=== PATIENT | female | born 1990 | race Caucasian/White ===

== ENCOUNTER 2018-09-13 20:09 | Emergency (ER) | payer OTHER ==
[2018-09-13 20:18] VITALS: BMI 27.3
--- NOTE | 2018-09-13 20:18 | PDOC ---
Rapid Medical Evaluation Chief Complaint: Vaginal Bleeding Medical Evaluation: Allergies Allergy/AdvReac Type Severity Reaction Status Date / Time No Known Allergies Allergy Verified 07/28/16 07:36 09/13/18 20:16 I performed a brief in person evaluation. CC: Vaginal bleeding HPI: Pt is a 28 YO female who is who is approx 9 weeks and is vaginal bleeding x 3 days. Soaking 2 pads/day. PE: Skin: Clear Lungs: Clear Heart: RRR MS: Moves all extremities without difficulty Neuro: Alert Psych: Appropriate affect Labs drawn. Pt will go to main ED for further evaluation. Discharge Disposition - Diagnosis Vaginal bleeding - Referrals - Patient Instructions - Post Discharge Activity
[2018-09-13 20:37] LABS: BASO % 0.4 % (0-2.0); EOS % 1.6 % (0-4.5); HEMATOCRIT 30.5 % (32.4-45.2); HEMOGLOBIN 10.5 GM/dL (10.7-15.3); LYMPH % 23.2 % (8-40); MCH 24.8 pg (25.7-33.7); MCHC 34.4 g/dl (32.0-36.0); MEAN CELL VOLUME 72.3 fl (80-96); MEAN PLT VOLUME 6.9 fl (7.5-11.1); MONO % 7.3 % (3.8-10.2); NEUT % 67.5 % (42.8-82.8); PLATELET COUNT 493 K/MM3 (134-434); RBC 4.22 M/mm3 (3.60-5.2); RDW 16.3 % (11.6-15.6); WHITE BLOOD COUNT 15.4 K/mm3 (4.0-10.0)
--- NOTE | 2018-09-13 20:38 | PDOC ---
History of Present Illness - General Chief Complaint: Vaginal Bleeding Stated Complaint: 9 WEEKS BLEEDING Time Seen by Provider: 09/13/18 20:38 History Source: Patient Exam Limitations: No Limitations - History of Present Illness Initial Comments: Pt is a 28 yo F, G1PO, with no significant PMH, who is presenting with complaints of vaginal spotting x5 days and diffuse, lower crampy abdominal pain since this AM. Pt states LMP was 11/6 (~9 weeks), and was normal in duration and amount of bleeding. Pt states she had Pap smear and STI testing just done in June 2018, and all tests were negative. Pt denies any fevers/chills, headache, vision changes, syncope, chest pain, palpitations, SOB, nausea/ vomiting, urinary symptoms (dysuria, hematuria, urgency), vaginal discharge that is unusual and foul-smelling, flank pain, diarrhea/constipation, or leg swelling. Social: Pt denies any cigarette, alcohol, or drug use. Pt denies any recent travel or sick contacts. Surgical: no relevant history. Family: no relevant history. 09/13/18 21:59 Past History - Travel Traveled outside of the country in the last 30 days: No Close contact w/someone who was outside of country & ill: No - Past Medical History Allergies/Adverse Reactions: Allergies Allergy/AdvReac Type Severity Reaction Status Date / Time No Known Allergies Allergy Verified 09/13/18 20:18 Home Medications: Ambulatory Orders No Home Medications 0 dose .ROUTE UTDICT 04/08/13 Anemia: No Asthma: No Cancer: No Cardiac Disorders: No CVA: No COPD: No CHF: No Dementia: No Diabetes: No GI Disorders: No Disorders: No HTN: No Hypercholesterolemia: No Liver Disease: No Seizures: No Thyroid Disease: No - Surgical History Abdominal Surgery: No GI Surgery: No - Immunization History Immunization Up to Date: No - Suicide/Smoking/Psychosocial Hx Smoking Status: No Smoking History: Never smoked Have you smoked in the past 12 months: No Number of Cigarettes Smoked Daily: 0 Information on smoking cessation initiated: No Hx Alcohol Use: No Drug/Substance Use Hx: No Substance Use Type: None Review of Systems - Review of Systems Able to Perform ROS?: Yes Is the patient limited Italian proficient: No Constitutional: Yes: Weight Stable. No: Chills, Diaphoresis, Fever, Loss of Appetite HEENTM: No: Recent change in vision, Nose Congestion, Throat Pain Respiratory: No: Cough, Shortness of Breath Cardiac (ROS): No: Chest Pain, Edema, Lightheadedness, Palpitations, Chest Tightness ABD/GI: Yes: See HPI, Abdominal cramping. No: Constipated, Diarrhea, Nausea, Poor Appetite, Poor Fluid Intake, Vomiting : Yes: See HPI, Other (vaginal bleeding, see HPI). No: Burning, Dysuria, Discharge, Frequency, Flank Pain, Hematuria, Incontinence, Pain, Urgency Musculoskeletal: No: Back Pain, Joint Pain Integumentary: No: Rash Neurological: No: Headache, Seizure, Weakness, Unsteady Gait, Dizziness Psychiatric: No: Sleep Pattern Change, Change in Appetite Endocrine: No: Increased Urine, Change in Weight Hematologic/Lymphatic: No: Anemia, Blood Clots, Easy Bleeding, Easy Bruising All Other Systems: Reviewed and Negative *Physical Exam - Vital Signs Last Vital Signs Temp Pulse Resp BP Pulse Ox 98.6 F 94 H 18 148/77 98 09/13/18 20:15 09/13/18 20:15 09/13/18 20:15 09/13/18 20:15 09/13/18 20:15 - Physical Exam General Appearance: Yes: Nourished, Appropriately Dressed. No: Apparent Distress HEENT: positive: EOMI, JEANINE, Normal ENT Inspection, Normal Voice, Symmetrical, Pharynx Normal, Hearing Grossly Normal. negative: Scleral Icterus (R), Scleral Icterus (L), Pharyngeal Erythema, Tonsillar Exudate, Tonsillar Erythema, Rhinorrhea Neck: positive: Trachea midline, Normal Thyroid, Supple. negative: Tender, Rigid, Lymphadenopathy (R), Lymphadenopathy (L) Respiratory/Chest: positive: Lungs Clear, Normal Breath Sounds. negative: Chest Tender, Respiratory Distress, Accessory Muscle Use, Crackles, Wheezing Cardiovascular: positive: Regular Rhythm, Regular Rate, S1, S2. negative: Edema , JVD, Murmur Vascular Pulses: Carotid (R): 4+, Carotid (L): 4+ Female Pelvic Exam: positive: normal external exam, cervical os closed, normal adnexa, normal size ovaries, vaginal bleeding (mild, no pooling). negative: CMT , discharge, lesions, adnexal tenderness Gastrointestinal/Abdominal: positive: Normal Bowel Sounds, Tender (mild RLQ abdominal tenderness, no rebound, no guarding), Flat, Soft. negative: Organomegaly, Pulsatile Mass, Distended, Guarding, Rebound Rectal Exam: positive: deferred Lymphatic: negative: Adenopathy, Tenderness Musculoskeletal: positive: Normal Inspection. negative: CVA Tenderness Extremity: positive: Normal Capillary Refill, Normal Inspection, Normal Range of Motion, Pelvis Stable. negative: Tender, Pedal Edema Integumentary: positive: Normal Color, Dry, Warm. negative: Jaundice, Clammy, Diaphoresis, Rash Neurologic: positive: gold leaf roller II-XII NML intact, Fully Oriented, Alert, Normal Mood/ Affect, Normal Response, Motor Strength 5/5 Moderate Sedation - Procedure Monitoring Vital Signs: Procedure Monitoring Vital Signs Temperature 98.6 F 09/13/18 20:15 Pulse Rate 94 H 09/13/18 20:15 Respiratory Rate 18 09/13/18 20:15 Blood Pressure 148/77 09/13/18 20:15 O2 Sat by Pulse Oximetry (%) 98 09/13/18 20:15 ED Treatment Course - LABORATORY CBC & Chemistry Diagram: 09/13/18 20:18 Medical Decision Making - Medical Decision Making Pt was seen at bedside, also will be seen by attending Dr. Boudreaux. Pt presenting with complaints of vaginal spotting x5 days and diffuse, lower crampy abdominal pain since this AM. Pt states LMP was 11/6 (~9 weeks), and was normal in duration and amount of bleeding. Pt states she had Pap smear and STI testing just done in June 2018, and all tests were negative. Pt denies any fevers/ chills, headache, vision changes, syncope, chest pain, palpitations, SOB, nausea /vomiting, urinary symptoms (dysuria, hematuria, urgency), vaginal discharge that is unusual and foul-smelling, flank pain, diarrhea/constipation, or leg swelling. Pt afebrile, pt mildly HTN at 148/77, likely anxiety given pt presentation -- will recheck. PE showed clear heart and lung sounds, no b/l pedal edema. Mild RLQ abdominal tenderness to palpation. No CVA tenderness. Vaginal exam showed mild bleeding in the vaginal canal, no clots or pooling. No foul smelling or unusual vaginal discharge. Considering normal bleeding of vs threatened vs inevitable miscarriage vs UTI. Minimal pain/bleeding and very early in , unlikely previa or placental abruption. Ordered work-up including CBC, beta-hcg, type and screen, coags, UA, and transvaginal US for . Pt denying pain control at this time. Will continue to reassess pt and monitor for symptomatic improvement. 09/13/18 20:53 [id number] US/TRANSVAGINAL US PREG HISTORY PROVIDED: Vaginal bleed. Real time examination of the pelvis utilizing the transvaginal probe demonstrates the following: The uterus is normal in size measuring 9.2 x 4.8 x 5.3 cm. No uterine masses are seen. There is a fluid collection within the endometrial cavity that has the appearance of a gestational sac. Mean sac diameter measurements correspond to a gestational age of 6 weeks 3 days. No yolk sac or pole are present and therefore the viability of this gestation is unlikely. Correlation with serial beta subunit hCG levels and follow-up ultrasonography is now recommended. The ovaries are normal in size and texture with arterial flow documented to both ovaries. There is no evidence of adnexal masses or free pelvic fluid collections. IMPRESSION: Gestational sac without evidence of a yolk sac or pole. Clinical and laboratory correlation and follow-up ultrasonography recommended. Please see above discussion. 09/13/18 20:56 CBC: WBC 15.4, H/H 10.5/30.5 -- similar on prior visits. UA showed trace leuk esterase -- pending micro to r/o infection -- will treat if UTI. 09/13/18 21:33 UA showed no significant infection. Pending type and screen. Lab called for results. 09/13/18 21:57 Repeat BP 120s/80s. First BP reading likely anxiety. 09/13/18 22:06 A positive, no need for rhogam. Pt advised to follow with [facility] for repeat beta-hcg (6000 today). Strict return precautions provided with pt understanding. 09/13/18 22:16 *DC/Admit/Observation/Transfer Diagnosis at time of Disposition: Vaginal bleeding during - Discharge Dispostion Disposition: HOME Condition at time of disposition: Good Decision to Admit order: No - Referrals Referrals: Glynn Sims PA [Physician [employer]] - - Patient Instructions Printed Discharge Instructions: DI for Vaginal Bleeding During Additional Instructions: You were seen in the ER today for vaginal bleeding during . You were provided the results of your labs today and the findings of your ultrasound. Please follow-up with your [facility] doctor tomorrow morning to discuss your visit and make a follow-up appointment within 2 days for repeat lab tests (beta-hcg). Please return to the ER if you have any worsening pain, worsening bleeding that soaks through 1-2 heavy pads per hour, development of fevers or chills, loss of consciousness, inability to tolerate food or fluids, or any other concerns. - Post Discharge Activity
[2018-09-13 21:06] LABS: INR 1.23 (0.83-1.09); PROTHROMBIN TIME (PATIENT) 14.6 SEC (9.7-13.0)
[2018-09-13 21:08] LABS: HCG,QUALITATIVE URINE Positive
[2018-09-13 21:10] LABS: URINE APPEARANCE SLCLOUDY; URINE BILIRUBIN NEGATIVE (<2.0 mg/dL); URINE COLOR LTYELLOW; URINE GLUCOSE (UA) NEGATIVE (NEGATIVE); URINE KETONE NEGATIVE (NEGATIVE); URINE LEUK ESTERASE TRACE (NEGATIVE); URINE NITRITE NEGATIVE (NEGATIVE); URINE PROTEIN 1+ (NEGATIVE); URINE UROBILINOGEN NEGATIVE mg/dL (0.2-1.0)
--- NOTE | 2018-09-13 21:24 | PDOC ---
Attending Attestation - Resident Resident Name: Seema Grey - ED Attending Attestation I have performed the following: I have examined & evaluated the patient, The case was reviewed & discussed with the resident, I agree w/resident's findings & plan, Exceptions are as noted - HPI HPI: 09/13/18 21:22 28yo F 9 weeks (by LMP 07/12) presents to the ED with vaginal bleeding and suprapubic cramping. SPotting since last , 1 pad/day. Today heavier bleeding, 2 pads per day. Cramping began today. No c/o f/v, N/V/ D. - Physicial Exam PE: 09/13/18 21:55 agree with resident exam cervix closed +blood in vault, no pooling, no clots no ttp midline or adnexal - Medical Decision Making 09/13/18 21:55 28yo F 9 weeks by dates, had first OB appt Wednesday presents to the ED with 5 days of vaginal spotting and 1 day of suprapubic cramping. Vitals with blood in vaginal vault. US with gestational sac, no pole, sac consistent with 6week . BHCG is 6912. It's possible pt has dates incorrect and is earlier on in , but states she is usually regular. More likely a threatened ab due to bleeding and cramping. UA with many reds, 2 whites trace LE and no bacteria, unlikely UTI. Type and screen is pending. Pt's BP noted to be elevated on arrival, will rpt. 09/13/18 22:21 BP normalized type and screen Rh+ Results explained to pt who has f/u in 3 days Stable for DC home, clinically well appearing I discussed the physical exam findings, ancillary test results and final diagnoses with the patient. I answered all of the patient's questions. The patient was satisfied with the care received and felt comfortable with the discharge plan and treatment plan. The patient will call their primary care physician within 24 hours to arrange follow-up and will return to the Emergency Department with any new, persistent or worsening symptoms.
[2018-09-13 21:48] LABS: EPI CELLS RARE /HPF (FEW); URINE MUCUS RARE
[2018-09-13 22:09] VITALS: BP 125/80; PULSE 81; TEMP 99.9
== END 2018-09-13 22:35 | disposition home or self-care (01) ==
LOC: JER 20:09
DX: O26.891 Other specified pregnancy related conditions, first trimester (principal); O20.8 Other hemorrhage in early pregnancy; R03.0 Elevated blood-pressure reading, without diagnosis of hypertension; Z3A.01 Less than 8 weeks gestation of pregnancy
CPT/HCPCS: 36415; 76817-TC; 81003; 81015; 84702; 84703; 85025; 85610; 86850; 86900; 86901; 99282-25

== ENCOUNTER 2019-02-14 07:34 | Emergency (ER) | payer OTHER ==
--- NOTE | 2019-02-14 07:55 | PDOC ---
History of Present Illness - General Chief Complaint: Pain, Acute Stated Complaint: 6Wks Preg Abd. Pain Time Seen by Provider: 02/14/19 07:55 - History of Present Illness Initial Comments: 02/14/19 08:19 Patient is a 28 year old female hx of in Sep, 2018 presents to the ED complaining of RLQ abd pain x 3 days. As per the patient, she was apparently well 3 days ago, then she started having RLQ abdominal pain. She took urine for preg test at home which was positive. Patient reports she has been very nervous and scared as this is a desired . Patient is flying to [place] tomorrow , wants to make sure everything is okay so came in to the ED for evaluation. Denies vaginal bleeding, no urinary symptoms, nausea, vomiting, fever, chills, rigors, sweating, headache, dizziness, no h/o fall, no h/o lifting heavy objects. Bowel/Bladder habit normal. Sleep/Appetite normal. LMP: January 05, 2019 Patient was last seen at [facility] ED in 09/24 for threatened . And after few days had complete . Past medical Hx: Complete . Allergies: NKDA Past Surgical Hx: None Social hx: Smoking: Denies Alcohol: Occasional, last drink 2 weeks ago, a glass of wine. Drugs: Denies Occupation: elementary special education teacher. Past History - Travel Traveled outside of the country in the last 30 days: No Close contact w/someone who was outside of country & ill: No - Past Medical History Allergies/Adverse Reactions: Allergies Allergy/AdvReac Type Severity Reaction Status Date / Time No Known Allergies Allergy Verified 09/13/18 20:18 Home Medications: Ambulatory Orders No Home Medications 0 dose .ROUTE UTDICT 04/08/13 Nitrofurantoin Macrocrystal [Nitrofurantoin] 100 mg PO BID 5 Days #10 capsule Anemia: No Asthma: No Cancer: No Cardiac Disorders: No CVA: No COPD: No CHF: No Dementia: No Diabetes: No GI Disorders: No Disorders: No HTN: No Hypercholesterolemia: No Liver Disease: No Seizures: No Thyroid Disease: No - Surgical History Abdominal Surgery: No GI Surgery: No - Immunization History Immunization Up to Date: No - Suicide/Smoking/Psychosocial Hx Smoking Status: No Smoking History: Never smoked Have you smoked in the past 12 months: No Number of Cigarettes Smoked Daily: 0 Information on smoking cessation initiated: No Hx Alcohol Use: No Drug/Substance Use Hx: No Substance Use Type: None Review of Systems - Review of Systems Able to Perform ROS?: Yes Is the patient limited Spanish proficient: No Constitutional: Yes: See HPI HEENTM: Yes: See HPI Respiratory: Yes: See HPI *Physical Exam - Vital Signs Last Vital Signs Temp Pulse Resp BP Pulse Ox 98.7 F 84 18 135/81 100 02/14/19 07:42 02/14/19 07:42 02/14/19 07:42 02/14/19 07:42 02/14/19 07:42 - Physical Exam Comments: 02/14/19 08:27 General: Young female, crying/nervous, sitting in bed, awake, alert, oriented x 3, in no acute distress HEENT: EOM intact, no pallor or icterus. Chest: B/L lungs clear, no added sounds. CVS: Regular rate and rhythm, S1, S2 no mumur Abdomen: Soft, tenderness in the RLQ, hepatosplenomegaly couldn't be appreciated , BS+ Ext: No peripheral edema. Pelvic exam: Cervical os closed, scanty amount of blood +, no discharge, no cervical motion tenderness. ED Treatment Course - LABORATORY CBC & Chemistry Diagram: 02/14/19 08:00 02/14/19 08:06 Medical Decision Making - Medical Decision Making 02/14/19 08:30 Patient is a 28 year old female came in to the ED c/o RLQ abdominal pain, urine for preg test positive at home. Differential diagnosis: Implantation pain, Ectopic, Appendicitis, tortion of ovaries, ovarian cyst. Will send CBC, CMP, UA, Urine culture, Serum for preg test, Quantitative BHcg. Transvaginal Ultrasound. 02/14/19 09:24 CBC: H/H 10.3/30 (at her baseline) T. bili 1.2 (same in 2015), AST 50 ALT normal 02/14/19 11:13 Patient feeling better. 02/14/19 11:41 On serial abdominal exam: Soft, non tender, BS+. Patient states the abdominal pain has resolved. Positive UA Transvaginal USG shows: Intrauterine Preg 5 wks + 2days. Left ovarian cyst measuring 2.7 cm x 2.1 cm. Impression: Urinary tract infection with viable 5wks +2 days. Discussed the test results with the patient. Recommended her to drink plenty of fluids, wear loose clothes around the abdomen (pt wearing tights), follow up with Ob as soon as possible and to take Prenatals. Vitals are stable, patient is feeling better, abdominal pain has resolved, stable to be discharged home. 02/14/19 12:[address] Mayo. *DC/Admit/Observation/Transfer Diagnosis at time of Disposition: Urinary tract infection affecting care of mother in first trimester, antepartum - Discharge Dispostion Disposition: HOME Condition at time of disposition: Improved - Prescriptions Prescriptions: Nitrofurantoin Macrocrystal [Nitrofurantoin] 100 mg PO BID 5 Days #10 capsule - Referrals - Patient Instructions Additional Instructions: You were evaluated for right lower abdominal pain. Blood work shows you have anemia and urine shows you have urinary tract infection. Please drink plenty of fluids, antibiotics as prescribed, follow up with OB as soon as possible within 1-2 days, continue taking vitamins, wear lose clothes around the abdomen. Return to the ED if your symptoms persist or if you develop any new symptoms. - Post Discharge Activity
[2019-02-14 08:07] VITALS: TEMP 98.7; BMI 27.3
--- NOTE | 2019-02-14 08:15 | PDOC ---
Attending Attestation - Resident Resident Name: Jade Mcmanus - ED Attending Attestation I have performed the following: I have examined & evaluated the patient, The case was reviewed & discussed with the resident, I agree w/resident's findings & plan, Exceptions are as noted - HPI HPI: 02/14/19 08:13 28yo F hx spontaneous at six weeks in Sep 2018 presents to the ED c/o R sided pain for 3 days. UPT 3 days ago was positive. Denies associated N/V/D, fevers, chills, cp, sob, dysuria, hematuria, frequency, vaginal bleeding or vaginal DC, LE edema. Pt was concerned about miscarrying and because she is going to [place] tomorrow. LMP 01/05/19. - Physicial Exam PE: 02/14/19 09:41 GENERAL: Awake, alert, and fully oriented, in no acute distress EYES: EOMI, sclera anicteric, conjunctiva clear ENT: Oropharynx clear without exudates. Moist mucosa LUNGS: Breath sounds equal, clear to auscultation bilaterally. No wheezes, and no crackles HEART: Regular rate and rhythm, normal S1 and S2, no murmurs, rubs or gallops ABDOMEN: Soft, nontender, normoactive bowel sounds. No guarding, no rebound. No masses : ext genitalia normal, os closed, no blood or discharge in vault, no midline or adnexal ttp EXTREMITIES: Normal range of motion, no edema. No cords, erythema, or tenderness NEUROLOGICAL: Normal speech, cranial nerves intact, equal strength and sensation b/l SKIN: Warm, Dry, normal turgor, no rashes or lesions noted. - Medical Decision Making 02/14/19 09:44 28yo F presents to the ED with RLQ pain APprox 5 weeks preg by dates Exam with no abd ttp, no RLQ tenderness or tenderness at mcburneys point Pelvic exam also unremarkable with no adnexal ttp DDx includes ectopic vs ovarian cyst vs appendicitis Plan for labs, UA, TVUS, dispo With regards to possiblility of appendicitis, low likelihood as pt is not tender but will do serial abd exams, check for leukocytosis and consider MRI/ further w/u accordingly 02/14/19 10:14 Rpt abd exam benign, no RLQ ttp Pt well appearing Denies abd pain 02/14/19 11:32 Rpt abd exam benign, no RLQ ttp Pt well appearing Denies abd pain 02/14/19 12:23 TVUS with IUP consistent with provided dates +L ovarian cyst, no pathology to R ovary Rpt abd exam remains benign Pt continues to deny abd pain No leukocytosis Discussed with pt the concern for appendicitis given reported RLQ pain last night, however pt has normal labs, exam, and lack of other sxs such as N/V/D. With shared decision making, pt elects to hold off on further evaluation with MRI at this time as she feels better. Pt aware to return to ED if pain comes back or if she has any new, worsening, or concerning symptoms Pt well appearing and clinically stable for DC home I discussed the physical exam findings, ancillary test results and final diagnoses with the patient. I answered all of the patient's questions. The patient was satisfied with the care received and felt comfortable with the discharge plan and treatment plan. The patient will call their primary care physician within 24 hours to arrange follow-up and will return to the Emergency Department with any new, persistent or worsening symptoms.
[2019-02-14] MEDS ORDERED: SODIUM CHLORIDE 1,000 ML IV STA (08:18)
[2019-02-14 08:37] LABS: EPI CELLS 10.9 /HPF (0-5/HPF); HYALINE CASTS 5 /lpf (0-8); PH,URINE 6.5 (5.0-8.0); URINE APPEARANCE CLEAR; URINE BACTERIA 188.7 /hpf (NEGATIVE); URINE BILIRUBIN NEGATIVE (NEGATIVE); URINE COLOR YELLOW; URINE GLUCOSE (UA) NEGATIVE (NEGATIVE); URINE KETONE NEGATIVE (NEGATIVE); URINE LEUK ESTERASE 1+ (NEGATIVE); URINE NITRITE NEGATIVE (NEGATIVE); URINE PROTEIN NEGATIVE (NEGATIVE); URINE RBC 1 /hpf (0-4); URINE WBC 9 /hpf (0-5)
[2019-02-14 09:02] LABS: HEMATOCRIT 30.6 % (32.4-45.2); MCH 22.6 pg (25.7-33.7); MCHC 32.7 g/dl (32.0-36.0); MEAN CELL VOLUME 69.2 fl (80-96); MEAN PLT VOLUME 7.3 fl (7.5-11.1); PLATELET COUNT 532 K/MM3 (134-434); RBC 4.41 M/mm3 (3.60-5.2); RDW 17.5 % (11.6-15.6); WHITE BLOOD COUNT 7.2 K/mm3 (4.0-10.0)
[2019-02-14 09:35] LABS: BILIRUBIN,TOTAL 1.2 mg/dL (0.2-1); BLOOD UREA NITROGEN 7.8 mg/dL (7-18); CALCIUM 8.6 mg/dL (8.5-10.1); CREATININE 0.6 mg/dL (0.55-1.3); POTASSIUM 5.8 mmol/L (3.5-5.1); TOT PROT 7.5 g/dl (6.4-8.2)
[2019-02-14] MEDS ORDERED: NITROFURANTOIN MACROCRYSTAL 50 MG CAPSULE (FP) PO SCH (10:45)
[2019-02-14] MEDS ORDERED: NITROFURANTOIN MACROCRYSTAL 50 MG CAPSULE (FP) ONE (10:46)
[2019-02-14 13:02] VITALS: BP 130/70; PULSE 80
== END 2019-02-14 13:02 | disposition home or self-care (01) ==
LOC: JER 07:34
PROC: 3E0337Z Introduction of Electrolytic and Water Balance Substance into Peripheral Vein, Percutaneous Approach (ICD-10-PCS; principal; 2019-02-14)
DX: O26.891 Other specified pregnancy related conditions, first trimester (principal); O23.41 Unspecified infection of urinary tract in pregnancy, first trimester; O34.81 Maternal care for other abnormalities of pelvic organs, first trimester; N83.292 Other ovarian cyst, left side; Z3A.01 Less than 8 weeks gestation of pregnancy
CPT/HCPCS: 36415; 76817-TC; 80053; 81003; 84702; 84703; 85027; 87086; 96360; 99282-25; J7030